=== PATIENT | female | born 1985 | race Caucasian/White ===

== ENCOUNTER 2016-09-01 09:08 | Emergency (ER) | payer OTHER ==
[2016-09-01] MEDS ORDERED: Aspirin Low Dose CHEW TAB* 81 MG PO ONE (09:14)
--- NOTE | 2016-09-01 09:36 | RAD ---
HISTORY: Chest pain, bronchitis COMPARISONS: None VIEWS:1: Single frontal portable view of the chest at 9:35 AM FINDINGS: LINES AND TUBES: None. CARDIOMEDIASTINAL SILHOUETTE: The cardiomediastinal silhouette is normal for portable technique. PLEURA: The costophrenic angles are sharp. No pleural abnormalities are noted. LUNG PARENCHYMA: The lungs are clear. ABDOMEN: The upper abdomen is clear. There is no subphrenic gas. BONES AND SOFT TISSUES: No bone or soft tissue abnormalities are noted. IMPRESSION: NO ACTIVE CARDIOPULMONARY DISEASE.
[2016-09-01 09:45] LABS: Hematocrit 35 % (35-47); Hemoglobin 12.1 g/dl (12.0-16.0); Mean Corpuscular HGB Conc 35 g/dl (31-36); Mean Corpuscular Hemoglobin 29 pg (27-31); Mean Corpuscular Volume 83 fL (80-97); Mean Platelet Volume 8 um3 (7.4-10.4); Red Blood Count 4.22 10^6/ul (4.0-5.4); Red Cell Distribution Width 12 % (10.5-15); White Blood Count 6.1 10^3/ul (3.5-10.8)
[2016-09-01 10:04] LABS: Albumin 3.7 g/dL (3.2-5.2); BUN/Creatinine Ratio 11.1 (8-20); Calcium 9.4 mg/dL (8.6-10.3); EGFR African American 143.7 (>60); EGFR Non-African American 111.7 (>60); Magnesium 1.9 mg/dL (1.9-2.7); Potassium 3.7 mmol/L (3.5-5.0); Total Bilirubin 0.3 mg/dL (0.2-1.0); Total Protein 8.7 g/dL (6.4-8.9)
[2016-09-01] MEDS ORDERED: Ketorolac INJ* 30 MG/ML 1 ML VIAL IV PUSH ONE (10:13)
[2016-09-01] MEDS ORDERED: Iohexol 350* (CONTRAST) 500 ML MDV IV ONE (10:17)
[2016-09-01 11:14] VITALS: BP 130/73
--- NOTE | 2016-09-01 11:22 | RAD ---
INDICATION: Pleuritic chest pain. Tachycardia. Oral contraceptive use. Assess for pulmonary embolus. COMPARISON: September 01, 2016 chest radiograph. TECHNIQUE: Multidetector CT images were obtained from the lung apices to the upper abdomen with 70 mL Omnipaque 350 IV contrast. Pulmonary angiogram protocol. Multiplanar reformation including with maximum intensity projection. REPORT: Respiratory motion artifact and minimal dependent subsegmental atelectasis. No alveolar consolidation concerning for pneumonia, focal pulmonary lesion, pleural effusion, pneumothorax. Upper normal 0.9 cm short axis bilateral axillary lymph nodes. Negative for lymphadenopathy based on short axis criteria. Upper normal heart size. Negative for pericardial effusion. Unremarkable thoracic aorta. No filling defects are identified from the main to the subsegmental pulmonary arteries to indicate presence of a pulmonary embolism. Images through the upper abdomen are remarkable for a 3 cm splenule at the splenic hilum without concern. 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 No suspicious focal osseous lesions evident. IMPRESSION: 1. Negative for pulmonary embolism. 2. Upper normal heart size. Negative for pericardial effusion.
[2016-09-01] MEDS ORDERED: methylPREDNISolone SOD SUCC* 125 MG 2 ML VIAL IV ONE (11:25)
--- NOTE | 2016-09-18 20:22 | ED ---
Gabe Martínez Adam, scribed for Ash Hilliard MD on 09/01/16 at 0950 . Respiratory - HPI Summary HPI Summary: 31 y/o female presents to the ED with c/o pleuritic pain. Chest pain has been on and off since yesterday but worsened significantly today registering at a 4 or 5 out of 10 in severity, localized near her heart. She was told by PCP 3 weeks ago that she possibly could have Bronchitis after reporting a productive cough with yellow sputum without hemoptysis at that time. Pt was given two does of ABx, as well as steroid Prednisone, and other medications Albuterol and Advair along with an inhaler. While productive cough has subsided since, Pt states current pleuritic pain is accompanied by diaphoresis. Pt denies any Hx of asthma, smoking, nor any SOB, myalgia, edema, fever, chill, or diarrhea, but does note she vomited one day ago after an especially fatty/sugary meal. Pt also took a trip by car from [place] to [place] two weeks ago. - History of Current Complaint Chief Complaint: EDChestPainROMI Stated Complaint: CHEST PAIN Time Seen by Provider: 09/01/16 09:17 Hx Obtained From: Patient Onset/Duration: Gradual Onset, Lasting Days, Still Present Timing: Constant Initial Severity: Moderate Current Severity: Moderate Pain Intensity: 4 Character: Cough (Productive) Sputum Amount: Moderate Sputum Color: Yellow Aggravating Factor(s): Deep Breaths Alleviating Factor(s): Steriods - Prednisone, Antibiotics, OTC Medications - Albuterol and Advair Associated Signs and Symptoms: Diaphoresis, Pleuritic Chest Pain - Allergy/Home Medications Allergies/Adverse Reactions: Allergies Allergy/AdvReac Type Severity Reaction Status Date / Time Cefaclor [From [facility]] Allergy Hives Verified 11/14/15 11:00 PMH/Surg Hx/FS Hx/Imm Hx Endocrine/Hematology History: Denies: Hx Diabetes Cardiovascular History: Denies: Hx Hypertension, Hx Pacemaker/ICD Respiratory History: Denies: Hx Asthma History: Denies: Hx Renal Disease Sensory History: Denies: Hx Hearing Aid Psychiatric History: Denies: Hx Panic Disorder - Surgical History Surgery Procedure, Year, and Place: THYROID REMOVED 2004-TONSILECTOMY 2002 Infectious Disease History: No Infectious Disease History: Denies: Traveled Outside the [place] in Last 30 Days - Family History Known Family History: Positive: Unknown - Social History Occupation: Employed Full-time Lives: With Family - Alcohol Use: None Hx Substance Use: No Substance Use Type: Reports: None Hx Tobacco Use: No Smoking Status (MU): Never Smoked Tobacco Review of Systems Positive: Skin Diaphoresis. Negative: Fever, Chills Negative: Erythema Negative: Sore Throat Positive: Chest Pain Positive: Cough. Negative: Shortness Of Breath Positive: Vomiting - One day ago after especially fatty/sugary meal. Negative: Abdominal Pain, Diarrhea, Nausea Negative: dysuria, hematuria Negative: Myalgia, Edema Negative: Rash Neurological: Other - Negavtive: Dizziness All Other Systems Reviewed And Are Negative: Yes Physical Exam - Summary Physical Exam Summary: Constitutional: Well-developed, Well-nourished, Alert. (-) Distressed Skin: Warm, Dry HENT: Normocephalic; Atraumatic Eyes: Conjunctiva normal Neck: Musculoskeletal ROM normal neck. (-) JVD, (-) Stridor, (-) Tracheal deviation Cardio: Chest tick present, rate normal, Heart sounds normal; Intact distal pulses; The pedal pulses are 2+ and symmetric. Radial pulses are 2+ and symmetric. (-) Murmur Pulmonary/Chest wall: Effort normal. (-) Respiratory distress, (-) Wheezes, (-) Rales, Costochondral tenderness Abd: Soft, (-) Tenderness, (-) Distension, (-) Guarding, (-) Rebound Musculoskeletal: (-) Edema Lymph: (-) Cervical adenopathy Neuro: Alert, Oriented x3 Psych: Mood and affect Normal Triage Information Reviewed: Yes Vital Signs On Initial Exam: Initial Vitals Temp Pulse Resp BP Pulse Ox 98.0 F 105 16 141/82 98 09/01/16 09:16 09/01/16 09:16 09/01/16 09:16 09/01/16 09:16 09/01/16 09:16 Vital Signs Reviewed: Yes - Tanvir Coma Scale Coma Scale Total: 15 Diagnostics - Vital Signs Vital Signs Temp Pulse Resp BP Pulse Ox 09/01/16 09:36 96 97 09/01/16 09:34 130/77 09/01/16 09:16 98.0 F 105 16 141/82 98 - Laboratory Result Diagrams: 09/01/16 09:30 09/01/16 09:30 Lab Statement: Any lab studies that have been ordered have been reviewed, and results considered in the medical decision making process. - Radiology CXR Radiology Interpretation Completed By: Radiologist - Impression: No active cardiopulmonary disease - CT CHEST/THORAX CTA CT Interpretation Completed By: Radiologist - IMPRESSION: 1. Negative for pulmonary embolism. 2. Upper normal heart size. Negative for pericardial effusion. - EKG 09:10 Cardiac Rate: NL - 89 BPM EKG Rhythm: Sinus Rhythm Ectopy: None EKG Interpretation: No STEMI - Additional Comments Diagnostic Additional Comments: Troponin I - 0.00 Re-Evaluation - Re-Evaluation First Eval Re-Evaluation Time: 11:28 - Discussed results. Disposition - Course Course Of Treatment: CT is negative. Consider viral bronchitis, asthma exacerbation, or pertussis. She has a pulmonary follow-up with Dr. Russell; she can schedule an appt with him in 2-3 days. She states that she saw Dr. Russell yesterday. Prescription will be given for Medrol Dosepak and Tessalon. - Diagnoses Provider Diagnoses: Cough, Pleurisy Discharge - Discharge Plan Condition: Stable Disposition: HOME Prescriptions: Benzonatate CAP* [Tessalon CAP*] 100 mg PO TID #30 cap methylPREDNISolone TAB* [Medrol TAB*] 4 - 8 mg PO .SEE LAZARO #1 lazaro Patient Education Materials: Acute Cough (ED), Pleurisy (ED) Referrals: Yaya Powell MD [Primary Care Provider] - Additional Instructions: Follow up with Dr. Russell (Pulmonology) as planned. The documentation as recorded by the Gabe mistry Adam accurately reflects the service I personally performed and the decisions made by , Ash Hilliard MD.
== END 2016-09-01 11:58 | disposition home or self-care (01) ==
LOC: ED 09:08
DX: R09.1 Pleurisy (principal); R05 Cough; R07.9 Chest pain, unspecified; R11.10 Vomiting, unspecified
CPT/HCPCS: 36415; 71010; 71275; 80053; 83735; 84484; 85025; 93005; 96374; 99284; J1885; Q9967

== ENCOUNTER 2016-09-07 21:02 | Emergency (ER) | payer OTHER ==
[2016-09-07] MEDS ORDERED: Ketorolac INJ* 60 MG/2 ML VIAL IM ONE (21:48)
[2016-09-07 22:10] LABS: Hematocrit 36 % (35-47); Mean Corpuscular HGB Conc 33 g/dl (31-36); Mean Corpuscular Hemoglobin 28 pg (27-31); Mean Corpuscular Volume 83 fL (80-97); Mean Platelet Volume 7 um3 (7.4-10.4); Red Blood Count 4.37 10^6/ul (4.0-5.4); Red Cell Distribution Width 12 % (10.5-15); White Blood Count 8.1 10^3/ul (3.5-10.8)
[2016-09-07 22:24] LABS: ALT 19 U/L (7-52); AST 24 U/L (13-39); Albumin 3.6 g/dL (3.2-5.2); Alkaline Phosphatase 70 U/L (34-104); Anion Gap 5 mmol/L (2-11); BUN/Creatinine Ratio 11.9 (8-20); Blood Urea Nitrogen 8 mg/dL (6-24); CO2 Carbon Dioxide 27 mmol/L (22-32); Calcium 9.1 mg/dL (8.6-10.3); Chloride 97 mmol/L (101-111); EGFR African American 133.8 (>60); EGFR Non-African American 104.1 (>60); Globulin 5.2 g/dL (2-4); Glucose 115 mg/dL (70-100); Potassium 3.6 mmol/L (3.5-5.0); Sodium 129 mmol/L (133-145); Total Protein 8.8 g/dL (6.4-8.9)
[2016-09-07] MEDS ORDERED: Acetaminophen TAB* 325 MG PO ONE (22:25)
[2016-09-07 22:31] LABS: Troponin I 0.04 ng/mL (<0.04)
--- NOTE | 2016-09-07 22:37 | RAD ---
Indication: Chest pain. 2 views of the chest including dual energy PA views demonstrate no mediastinal shift. Heart is of normal size and configuration. Lung portillo are clear. When compared to previous exam of September 01, 2016 no significant change is noted. IMPRESSION: No active cardiopulmonary disease is noted.
--- NOTE | 2016-09-08 01:14 | ED ---
veronika Martínez Timothy, scribed for Dany Rogel on 09/07/16 at 2137 . HPI Chest Pain - HPI Summary HPI Summary: Varsha Cheema is a 31 yo female presenting to [facility] with 8/10 mid chest pain since today. She also has SOB, dry cough, and COBB. Her pain is worse with coughs and deep breaths. Pt reports presenting to her PCP today, and was Dx with flu and started tamiflu. She states that she was here last week for a similar Sx. Pt denies any cardiac or respiratory MHx. - History of Current Complaint Chief Complaint: EDGeneral Time Seen by Provider: 09/07/16 21:29 Hx Obtained From: Patient Onset/Duration: Started Hours Ago, Still Present Time of Onset: 19:00 Timing: Constant Initial Severity: Moderate Current Severity: Moderate Pain Intensity: 8 Pain Scale Used: 0-10 Numeric Chest Pain Location: Mid Sternal Aggravating Factor(s): Deep Breaths Associated Signs and Symptoms: Positive: Chest Pain, Headaches, Shortness of Breath, Nonproductive Cough - Allergy/Home Medications Allergies/Adverse Reactions: Allergies Allergy/AdvReac Type Severity Reaction Status Date / Time Cefaclor [From [facility]] Allergy Hives Verified 09/07/16 21:15 PMH/Surg Hx/FS Hx/Imm Hx Endocrine/Hematology History: Denies: Hx Diabetes Cardiovascular History: Denies: Hx Hypertension, Hx Pacemaker/ICD History: Denies: Hx Renal Disease Sensory History: Denies: Hx Hearing Aid Psychiatric History: Denies: Hx Panic Disorder - Surgical History Surgery Procedure, Year, and Place: THYROID REMOVED 2004-TONSILECTOMY 2002 Infectious Disease History: No Infectious Disease History: Denies: Traveled Outside the [place] in Last 30 Days - Family History Known Family History: Positive: Cardiac Disease, Hypertension, Diabetes - Social History Alcohol Use: None Substance Use Type: Reports: None Smoking Status (MU): Unknown if Ever Smoked Review of Systems Constitutional: Negative Eyes: Negative ENT: Negative Positive: Chest Pain Positive: Shortness Of Breath, Cough Gastrointestinal: Negative Genitourinary: Negative Musculoskeletal: Negative Skin: Negative Positive: Headache Psychological: Normal All Other Systems Reviewed And Are Negative: Yes Physical Exam Triage Information Reviewed: Yes Vital Signs On Initial Exam: Initial Vitals Temp Pulse Resp BP Pulse Ox 98.8 F 124 16 108/68 98 09/07/16 21:04 09/07/16 21:04 09/07/16 21:04 09/07/16 21:04 09/07/16 21:04 Vital Signs Reviewed: Yes Appearance: Positive: Well-Appearing, No Pain Distress Skin: Positive: Warm, Skin Color Reflects Adequate Perfusion, Dry Head/Face: Positive: Normal Head/Face Inspection Eyes: Positive: EOMI, SHEEBA ENT: Positive: Normal ENT inspection, Hearing grossly normal. Negative: Muffled /hoarse voice Neck: Positive: Supple, Nontender Respiratory/Lung Sounds: Positive: Clear to Auscultation, Breath Sounds Present Cardiovascular: Positive: RRR, Pulses are Symmetrical in both Upper and Lower Extremities. Negative: Normal - midsternal chest tenderness Abdomen Description: Positive: Nontender, Soft Bowel Sounds: Positive: Present Musculoskeletal: Positive: Normal, Strength/ROM Intact Neurological: Positive: Normal, Sensory/Motor Intact, Alert, Oriented to Person Place, Time Psychiatric: Positive: Normal, Affect/Mood Appropriate Diagnostics - Vital Signs Vital Signs Temp Pulse Resp BP Pulse Ox 09/07/16 21:04 98.8 F 124 16 108/68 98 - Laboratory Result Diagrams: 09/07/16 22:00 09/07/16 22:00 Lab Statement: Any lab studies that have been ordered have been reviewed, and results considered in the medical decision making process. - Radiology CXR Xray Interpretation: No Acute Changes - IMPRESSION: No active cardiopulmonary disease is noted. Radiology Interpretation Completed By: Radiologist - EKG 2102 Cardiac Rate: Tachycardia - @ 131 BPM EKG Interpretation: Sinus tachycardia @ 131 BPM Re-Evaluation - Re-Evaluation First Eval Re-Evaluation Time: 01:03 Change: Improved Comment: Pt was informed of results of imaging and lab work, she is agreeable to be discharged. Chest Pain Course/Dx - Course Assessment/Plan: Varsha Cheema is a 31 yo female presenting to [facility] with 8/10 mid CP after taking tamiflu earlier today when she was Dx with flu by her PCP. After review of her negative CXR and tachycardic EKG, as well as her lab work, she will be discharged home. - Diagnoses Provider Diagnoses: Fever, Chest pain Discharge - Discharge Plan Condition: Stable Disposition: HOME Patient Education Materials: Chest Pain (ED), Fever in Adults (ED) Referrals: Yaya Powell MD [Primary Care Provider] - 2 Days Additional Instructions: Please follow up with your primary care physician regarding your visit to the emergency department today. Return to the emergency department with any new or recurring symptoms. The documentation as recorded by the veronika mistry Timothy accurately reflects the service I personally performed and the decisions made by , Dany Rogel.
[2016-09-08 01:25] VITALS: BP 99/57
== END 2016-09-08 01:25 | disposition home or self-care (01) ==
LOC: ED 21:02
DX: R50.9 Fever, unspecified (principal); R07.9 Chest pain, unspecified; R51 Headache; R06.02 Shortness of breath; R05 Cough
CPT/HCPCS: 36415; 71020; 80053; 83880; 84484; 84702; 85025; 93005; 96372; 99283; A9270-GY; J1885

== ENCOUNTER 2016-09-13 09:58 | Observation (INO) | payer OTHER ==
[2016-09-13] MEDS ORDERED: cefTRIAXone(*) 2 GM in NS 0.9% 50 ML* 50 ML IVPB ONE (11:23)
[2016-09-13] MEDS ORDERED: Vancomycin(*) 1,000 MG in NS 0.9% 250 ML* 250 ML IVPB ONE (11:23)
[2016-09-13 11:32] LABS: Hematocrit 30 % (35-47); Hemoglobin 10.3 g/dl (12.0-16.0); Mean Corpuscular HGB Conc 34 g/dl (31-36); Mean Corpuscular Hemoglobin 28 pg (27-31); Mean Corpuscular Volume 81 fL (80-97); Mean Platelet Volume 7 um3 (7.4-10.4); Red Blood Count 3.68 10^6/ul (4.0-5.4); Red Cell Distribution Width 12 % (10.5-15); White Blood Count 6.8 10^3/ul (3.5-10.8)
[2016-09-13] MEDS ORDERED: NS 0.9% 250 ML* 250 ML ONE (11:34)
[2016-09-13] MEDS ORDERED: Vancomycin(*) 1,000 MG BAG IVPB ONE (11:37)
[2016-09-13] MEDS ORDERED: cefTRIAXone(*) 2 GM ADDV.VIAL IVPB ONE (11:37)
[2016-09-13 11:44] LABS: Urine Bacteria Absent (Absent); Urine Bilirubin Negative (Negative); Urine Glucose Negative (Negative); Urine Nitrite Negative (Negative)
[2016-09-13 11:50] LABS: Albumin 3.2 g/dL (3.2-5.2); BUN/Creatinine Ratio 9.8 (8-20); Calcium 8.7 mg/dL (8.6-10.3); EGFR African American 183.4 (>60); EGFR Non-African American 142.6 (>60); Globulin 4.8 g/dL (2-4); Potassium 3.6 mmol/L (3.5-5.0); Total Bilirubin 0.4 mg/dL (0.2-1.0)
[2016-09-13] MEDS ORDERED: Acetaminophen TAB* 325 MG PO ONE (11:55)
--- NOTE | 2016-09-13 12:17 | RAD ---
INDICATION: Fever COMPARISON: September 07, 2016 TECHNIQUE: An AP portable view obtained at 1135 hours is submitted. FINDINGS: Bones/Soft Tissues: There are no acute bony findings. Cardiomediastinal: The cardiomediastinal silhouette is normal. Lungs: There are no infiltrates. Pleura: There are no pleural effusions. Other: None IMPRESSION: NEGATIVE EXAMINATION.
[2016-09-13] MEDS ORDERED: Metoclopramide IV* 5 MG/ML 2 ML VIAL IV ONE (12:38)
[2016-09-13] MEDS ORDERED: Ketorolac INJ* 30 MG/ML 1 ML VIAL IV PUSH ONE (13:15)
[2016-09-13 13:42] LABS: CSF Glucose 51 mg/dL (40-70)
[2016-09-13 13:54] LABS: BF RBC Count #1 0; BF RBC Count #2 0; BF WBC Count #1 4; BF WBC Count #2 8; Body Fluid Appearance Clear; Body Fluid WBC 6 /mcL; RBC counts within 6%? Yes; WBC counts within 15%? Yes
[2016-09-13 14:16] LABS: Body Fluid Total Cells Counted 100
[2016-09-13] MEDS ORDERED: Albuterol HFA INHALER* 8 gm MDI INH PRN (14:33)
[2016-09-13] MEDS ORDERED: Acetaminophen TAB* 325 MG PO PRN (14:34)
[2016-09-13] MEDS ORDERED: oxyCODONE/Acetamin 5/325 MG* TAB PO PRN (14:34)
[2016-09-13] MEDS ORDERED: Temazepam CAP* 15 MG PO PRN (14:34)
[2016-09-13] MEDS ORDERED: Morphine INJ* 2 MG/ML 1 ML CARPUJECT IV PRN (14:34)
[2016-09-13] MEDS ORDERED: NS 0.9% 1000 ML* 1,000 ML IV SCH (14:45)
[2016-09-13 14:59] LABS: Manual Entry Verification AS; Mono Internal Control QC Line Present; Mono Kit Lot# 6070004
[2016-09-13] MEDS: Ibuprofen TAB* 600 MG PO PRN (20:34)
--- NOTE | 2016-09-13 21:22 | CONS ---
CONSULTATION REPORT: DATE OF CONSULT: 09/13/16 REQUESTING PHYSICIAN: Dr. Hilliard. CONSULTING SERVICE: Infectious Disease. REASON FOR CONSULTATION: Fever and headache. IMPRESSION: 1. The patient has been ill for 4 to 5 weeks initially with fever, chill, myalgia, and cough. Flu antigen was negative at that time. Had a course of Tamiflu, has had pleuritic chest pain, multiple primary care and ER evaluations , which have been unrevealing except for elevated C-reactive protein and now at about 48 hours of severe migraine headaches, feels like her usual migraines, but would not go away. No neck stiffness. She has mild photophobia. I suspect underlying viral etiology, which would include influenza, parainfluenza, or active sore throat. 2. Niki-Yusuf acute infection, seen less likely or CMV that is also possible. She has had no travel or tick exposure here and her normal white count , platelets argue against non-Lyme tick-borne illness. She has not have other focal signs or symptoms. 3. Status post thyroidectomy. 4. Abnormal urinalysis. No urinary tract infection symptoms. RECOMMENDATIONS: She can a lumbar puncture with the routine studies to rule out a viral meningitis as a cause of her migraine type symptoms. She is having IV fluid hydration here, however, by labs she does not appear to be particularly dehydrated or prerenal. She has a mild anemia without elevated bilirubin. We will add a LDH and haptoglobin to rule out hemolysis, which is a complication of some viral and atypical bacterial infections. I can add EBV titers. Add CK to her blood testing. We will add urine culture. HISTORY OF PRESENT ILLNESS: This is a 31-year-old woman otherwise healthy seen in the ER with headache and fever. She provides a history, which was about 4 and half to 5 weeks ago, she developed fever, productive cough, chills, myalgia , had an influenza swab, which was negative, had an empiric course of Tamiflu for 5 days and did feel better after a day or two, as far as her fever and aches go. Fever became more low grade and aches resolved. However, then she developed pleuritic chest pain worse with a deep breath, leaning forward or back and so she was seen in the ER on the , had a course of doxycycline and steroid medications for probable bronchitis. Had a little bit of improvement with prescribed Levaquin, which she only took a dose or two of and stopped and was told by Dr. Powell it is probably viral. She had a CT of the chest on the that showed no pulmonary embolus and upper normal heart size without pericardial effusion. Chest x-ray on the showed no active cardiopulmonary disease. She has had occasional fever with chills and sweats, but no rigors. For the last 48 hours, she has had headache, which feels like her usual migraine headaches, except that they do not go away with the usual interventions and include mild photophobia. Denies neck stiffness or aura. She has tried her triptan medication at home without much success. Because of the chills, sweats, ongoing headaches, she was directed to the ER by Dr. Powell. She has seen by Dr. Hilliard, who is going to do a lumbar puncture. Blood tests have come back. She had an HCG on the , which was negative. PAST MEDICAL HISTORY: Status post total thyroidectomy, now on thyroid replacement. MEDICATIONS AT HOME: 1. Methylprednisolone. 2. Ibuprofen. 3. Benzonatate. ALLERGIES: CEFACLOR. FAMILY HISTORY: No tuberculosis or recurrent infections. SOCIAL HISTORY: She lives in [place] with her . They have a dog and a cat. No one else have been sick at home. She has had no travel. 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 No sick contacts at work. REVIEW OF SYSTEMS: All negative as noted above. PHYSICAL EXAMINATION: GENERAL: She is awake, not in distress. She is not diaphoretic. VITAL SIGNS: Temperature 38.3, heart rate 80, respiratory rate 20 , blood pressure 106/73, O2 sat 100% on room air. HEENT: There is no conjunctival hemorrhage. Oropharynx, no lesions. NECK: Neck is supple without nuchal rigidity. LUNGS: Clear to auscultation. HEART: Regular rate and rhythm without murmurs, rubs, or gallops. ABDOMEN: Soft, nontender, nondistended without hepatosplenomegaly. There is no flank tenderness to palpation. MUSCULOSKELETAL: No spine tenderness to palpation or joint synovitis. SKIN: There is no rash or splinter hemorrhages. LYMPH NODES: No palpable or visible lymphadenopathy. NEUROLOGIC: She is oriented x3, follows all commands. Moves all of her extremities. Cranial nerves II through XII are intact. DIAGNOSTIC STUDIES/LABORATORY DATA: White blood cell count 6.8, hemoglobin 10.3 , platelets 361, creatinine is 0.5, BUN is 5, troponin is 0, ALT is 14. Urinalysis shows 1+ white cells, squamous cells, and 2+ leukocyte esterase. Please see impressions and recommendations as outlined above, which I have discussed with Dr. Hilliard. Thank you for asking me to see Ms. Cheema in consultation. [id number]/[facility] #: [id number] [facility] CENTERVidya
--- NOTE | 2016-09-13 22:22 | HP ---
HISTORY AND PHYSICAL: DATE OF ADMISSION: 09/13/16 PRIMARY CARE PHYSICIAN: Dr. Powell. CHIEF COMPLAINT: Intermittent fevers and upper respiratory infection symptoms for 5 weeks. HISTORY OF PRESENT ILLNESS: Varsha Cheema is a 31-year-old female with a history of migraine headaches who had been having problems with intermittent fevers and upper respiratory infection symptoms for the past 5 weeks. Approximately 5 weeks ago, she started having nonproductive cough. She was diagnosed with bronchitis and placed on doxycycline. Afterwards, she was treated with azithromycin. She also in the past 4 weeks had been on 2 Medrol Dosepak and the last one finished on 09/01/11. She also was prescribed Levaquin at some point, but that medication she did not take. She was seen on 09/07/16 in the ED for chest pain. A CT angiogram of the chest documented on 09/01/16 showed negative pericardial effusion and negative for PE and upper normal heart size. The patient stated that her upper respiratory infection symptoms basically resolved, but she started developing more fevers. Approximately 6 days ago she had fever and rigors. She was seen in the ED at that point and that was noted to be on 09/07/16, and was placed on Tamiflu despite negative flu test. She continued the medication and finished the entire course as prescribed. It seemed that the fever somehow resolved, but today in the morning she had a fever of 100.9. She also noted her migraine headaches to be more severe. She used Zomig on a p.r.n. basis, but today in the morning the headache was so severe that the Zomig did not help. She also vomited once and she thought that was due to the migraine headache, but at the time of evaluation in the emergency room her headache is now much improved. The headache is described as frontal and bitemporal. She denies any problems with photophobia or neck pain. She also denied any problems with joint pain or edema. She had a couple of bouts of loose stools in the past couple of weeks, but that resolved and no abdominal pain was reported by the patient. Overall, she came into the hospital today with a temperature of 100.9 and worsening headache. There was a question of meningismus on the evaluation by the ED physician and a lumbar puncture was performed. That was not conclusive of meningitis. The patient was also seen in the emergency room by Dr. Conde from Infectious Diseases, who recommended evaluation for a possibility of hemolysis with haptoglobin and LDH as this patient's hemoglobin dropped from 12 to 10.3 over the past 2 weeks. The patient stated that she just started her period 6 days ago and that ended yesterday. Overall, the patient still feels weak and she is going to be admitted for dehydration and viral symptoms for observation. PAST MEDICAL HISTORY: 1. History of migraines. 2. History of thyroidectomy for the goiter. 3. History of status post tonsillectomy remotely. MEDICATION LIST: Include: 1. control pill Ocella 1 tablet daily. 2. Levothyroxine 150 mcg every other day alternating with 175 mcg every other day. 3. Albuterol inhaler 2 inhalations every 6 hours p.r.n. 4. Zomig 2.5 mg b.i.d. p.r.n. 5. Ibuprofen 600 mg every 8 hours p.r.n. ALLERGIES: CEFACLOR caused hives. Please note that the patient received ceftriaxone in the emergency department without any problems. FAMILY HISTORY: Positive for father with multiple myeloma and history of diabetes. SOCIAL HISTORY: The patient denies any tobacco, alcohol, or drug use. She is working in [employer]. She is . Her surrogate decision making person will be her mother. REVIEW OF SYSTEMS: Please see history of present illness. All the remaining 14 systems were reviewed with the patient and were otherwise negative. PHYSICAL EXAMINATION GENERAL: The patient is a very pleasant 31-year-old female who is in no acute distress, alert, awake, and oriented x3. VITAL SIGNS: Blood pressure of 114/69, heart rate of 86 and regular, respiratory rate 20, oxygen saturation 100% on room air, temperature 100.9. HEENT: Head is atraumatic, normocephalic. Eyes: Pupils equal, round, reactive to light and accommodation. Oropharynx clear. Mucosa moist. NECK: Supple. No JVD. No bruit bilaterally. RESPIRATORY: Clear to auscultation bilaterally. CARDIOVASCULAR: Regular rate and rhythm. No murmur. ABDOMEN: Soft, nontender. Bowel sounds present in all 4 quadrants. There is no CVA tenderness on evaluation. EXTREMITIES: There is no edema. Pulses +2 bilaterally. No clubbing or cyanosis. NEUROLOGIC: Cranial nerves II through XII grossly intact. Motor strength is 5/ 5 bilaterally. There is no neck stiffness on evaluation. SKIN: On evaluation of the skin, no ecchymotic areas or rashes noted. LABORATORY DATA AND STUDIES PERFORMED DURING THE HOSPITAL STAY: Included monospot was negative. White blood cell count of 6.8, hemoglobin of 10.3, hematocrit of 30, and platelets of 361. Sodium 131, potassium 4.6, chloride 99, carbon dioxide 23, BUN 9, creatinine 0.5. Liver function tests were unremarkable. Troponin of 0. Urinalysis showed low specific gravity with trace blood, trace ketones, +2 esterase and no bacteria. CSF fluid was colorless and clear with 6 white blood cells, 0 red blood cells, 48% neutrophils and 46% lymphocytes. Glucose was 51 and protein of 66. CSF Gram stain showed no organisms and +3 polys. Blood cultures are obtained on 09/11/16 that were both negative. Portable chest x-ray was read by the radiologist as "negative examination." ASSESSMENT AND PLAN: Varsha Cheema is a 31-year-old female with history of migraines who presents with symptoms of viral syndrome. The patient had been up to now on at least 2 antibiotics and she finished her last Medrol Dosepak on 09/01/16. At this point, she does have a low-grade fever, but her headache is improving and most likely migraine related. Her CSF is not conclusive of meningitis, although she does have mildly elevated total white blood cells at 6 with the cutoff being 5. At this point, the patient is going to be placed on overnight observation and rehydrated. Due to abnormal urinalysis, she is going to be continued to be treated with ceftriaxone for possible UTI. For DVT prophylaxis, the patient is ambulatory and low risk. In regards to the patient's anemia, I believe it is probably related to menstrual blood loss. The patient's decrease in hemoglobin coincides with her having her menstruation. At this point, haptoglobin and LDH levels are pending in terms of the patient. TIME SPENT: Approximately 62 minutes were spent on the admission of this patient, more than half that time was spent [id number] with the patient during the interview and physical exam. CC: Dr. Powell; Dr. Conde * [id number]/[facility] #: [id number] [facility]
[2016-09-14] MEDS: Ibuprofen TAB* 600 MG PO PRN ×2 (04:35→12:13)
[2016-09-14] MEDS ORDERED: Levothyroxine TAB* 100 MCG TAB PO SCH (06:00)
[2016-09-14] MEDS ORDERED: Levothyroxine TAB* 75 MCG TAB PO SCH (06:00)
[2016-09-14 06:45] LABS: Hematocrit 29 % (35-47); Hemoglobin 9.8 g/dl (12.0-16.0); Mean Corpuscular HGB Conc 33 g/dl (31-36); Mean Corpuscular Hemoglobin 28 pg (27-31); Mean Corpuscular Volume 83 fL (80-97); Mean Platelet Volume 7 um3 (7.4-10.4); Red Blood Count 3.56 10^6/ul (4.0-5.4); Red Cell Distribution Width 12 % (10.5-15); White Blood Count 6.3 10^3/ul (3.5-10.8)
[2016-09-14 07:01] LABS: BUN/Creatinine Ratio 12.5 (8-20); EGFR African American 196.6 (>60); EGFR Non-African American 152.9 (>60); Potassium 3.7 mmol/L (3.5-5.0)
--- NOTE | 2016-09-14 07:57 | ED ---
Gabe Martínez Adam, scribed for Ash Hilliard MD on 09/13/16 at 1104 . Complex/Multi-Sys Presentation - HPI Summary HPI Summary: 31 year old female arrived to [facility] complaining of continuous headache for the past three days, worsening yesterday. She has also been experiencing difficulty walking, N/V/D, fever (100.8), chills, general body aches, and productive cough with very thick sputum. She reports feeling "bothered by light", and her pain is exacerbated by movement. She denies any vaginal bleeding/discharge or stomach pains. She takes Zomig for her chronic migraines, but yesterday the Zomig did not have any effect. The patient has been experiencing a chronic cough, chest pain, and migraines for five weeks; initial rapid flu test came back negative. 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 Russell. She returned to [facility] on 09/07 c/o chest pain/SOB/Productive cough; she was treated for the flu and advised to follow up with her PCP. - History Of Current Complaint Chief Complaint: ED Hx Obtained From: Patient Onset/Duration: Gradual Onset, Lasting Weeks - five weeks, worsened yesterday Timing: Constant Severity Currently: Moderate Severity Initially: Moderate Associated Signs And Symptoms: Positive: Headache, Cough, Nausea, Vomiting, Diarrhea, Fever - 100.8 (taken in ED) - Allergies/Home Medications Allergies/Adverse Reactions: Allergies Allergy/AdvReac Type Severity Reaction Status Date / Time Cefaclor [From [facility]] Allergy Hives Verified 09/07/16 21:15 Home Medications: Home Medications Albuterol HFA INHALER* [Ventolin HFA Inhaler*] 2 puff INH Q6H PRN 09/13/16 [ History Confirmed 09/13/16] Drospirenone-Ethinyl Estradiol [Ocella 3-0.03 mg] 1 tab PO DAILY 09/13/16 [ History Confirmed 09/13/16] Levothyroxine TAB (NF) [Synthroid TAB (NF)] 175 mcg PO EVERY OTHER DAY 09/13/16 [History Confirmed 09/13/16] Levothyroxine TAB* [Synthroid TAB*] 150 mcg PO EVERY OTHER DAY 09/13/16 [ History Confirmed 09/13/16] Zolmitriptan [Zolmitriptan Odt] 2.5 mg PO BID PRN 09/13/16 [History Confirmed ] PMH/Surg Hx/FS Hx/Imm Hx Endocrine/Hematology History: Denies: Hx Diabetes, Autoimmune Disease Cardiovascular History: Denies: Hx Hypertension, Hx Pacemaker/ICD History: Denies: Hx Renal Disease Sensory History: Denies: Hx Hearing Aid Psychiatric History: Denies: Hx Panic Disorder - Surgical History Surgery Procedure, Year, and Place: THYROID REMOVED 2004-TONSILECTOMY 2002 Infectious Disease History: No Infectious Disease History: Denies: Traveled Outside the [place] in Last 30 Days - Family History Known Family History: Positive: Cardiac Disease, Hypertension, Diabetes - Social History Alcohol Use: None Substance Use Type: Reports: None Smoking Status (MU): Unknown if Ever Smoked Review of Systems Positive: Fever - 100.8, Chills Positive: Photophobia. Negative: Erythema Negative: Sore Throat Negative: Chest Pain Positive: Cough - productive cough, thick sputum . Negative: Shortness Of Breath Positive: Vomiting, Diarrhea, Nausea. Negative: Abdominal Pain Positive: other - no vaginal bleeding/discharge. Negative: dysuria, hematuria Positive: Myalgia - neck pain . Negative: Edema Negative: Rash Neurological: Other - difficulty walking Positive: Headache All Other Systems Reviewed And Are Negative: Yes Physical Exam - Summary Physical Exam Summary: Constitutional: Well-developed, Well-nourished, Alert. (-) Distressed Skin: Warm, Dry HENT: Normocephalic; Atraumatic Eyes: Conjunctiva normal. Photosensitivity. Neck: Musculoskeletal ROM normal neck. (-) JVD, (-) Stridor, (-) Tracheal deviation Cardio: Rhythm regular, rate normal, Heart sounds normal; Intact distal pulses; The pedal pulses are 2+ and symmetric. Radial pulses are 2+ and symmetric. (-) Murmur Pulmonary/Chest wall: Effort normal. (-) Respiratory distress, (-) Wheezes, (-) Rales Abd: Soft, (-) Tenderness, (-) Distension, (-) Guarding, (-) Rebound Musculoskeletal: (-) Edema. Meningismus. Lymph: (-) Cervical adenopathy Neuro: Alert, Oriented x3. Psych: Mood and affect Normal Triage Information Reviewed: Yes Vital Signs On Initial Exam: Initial Vitals Temp Pulse Resp BP Pulse Ox 99.3 F 96 20 121/73 98 09/13/16 10:07 09/13/16 10:07 09/13/16 10:07 09/13/16 10:07 09/13/16 10:07 Vital Signs Reviewed: Yes Procedures - Lumbar Puncture Procedural Sedation: No Position: Lateral Decubitus Aseptic Technique: Local Anesthesia, Lidocaine Anesthesia Used: 1.0% Lido Spinal Needle Used: 22 Gauge Lumbar Puncture Note: 3.5 inch spinal needle, L4-L5 interspace, tolerated well, clear fluid obtained 4 mLs Diagnostics - Vital Signs Vital Signs Temp Pulse Resp BP Pulse Ox 09/13/16 10:07 99.3 F 96 20 121/73 98 - Laboratory Result Diagrams: 09/13/16 11:20 09/13/16 11:20 Lab Statement: Any lab studies that have been ordered have been reviewed, and results considered in the medical decision making process. - Radiology CXR Radiology Interpretation Completed By: Radiologist - IMPRESSION: NEGATIVE EXAMINATION. - Additional Comments Diagnostic Additional Comments: Troponin I - 0.00 Monoscreen - Negative Complex Multi-Symp Course/Dx - Diagnoses Provider Diagnoses: UTI (urinary tract infection), Viral illness - Physician Notifications Discussed Care Of Patient With: 13:15 - discussed care of patient with PCP (Dr. Powell), shawnacommenmelani pt be admitted to the hospital for further care. Instructed by Provider To: Admit As Inpatient Discharge - Discharge Plan Condition: Stable Disposition: ADMITTED TO [facility] documentation as recorded by the Gabe mistry Adam accurately reflects the service I personally performed and the decisions made by me, Ash Hilliard MD.
[2016-09-14] MEDS ORDERED: Ketorolac INJ* 15 MG/ML 1 ML VIAL IV PUSH ONE (08:56)
[2016-09-14] MEDS ORDERED: Eth Estradiol/Drospirenone(NF) TAB PO SCH (09:00)
[2016-09-14 11:52] VITALS: BP 111/62
[2016-09-14] MEDS ORDERED: cefTRIAXone VIAL(*) 1,000 MG in NS 0.9% 50 ML* 50 ML IVPB SCH (12:00)
[2016-09-15] MEDS ORDERED: Levothyroxine TAB* 150 MCG TAB PO SCH (06:00)
--- NOTE | 2016-09-15 06:34 | DS ---
DISCHARGE SUMMARY: DATE OF ADMISSION: 09/13/16 DATE OF DISCHARGE: 09/14/16 PRIMARY CARE PROVIDER: Dr. Powell. DISCHARGE DIAGNOSIS: Mild septic meningitis with subsequent headache. SECONDARY DIAGNOSES: 1. History of recent viral syndrome. 2. History of migraines. 3. Status post thyroidectomy and post surgical hypothyroidism. 4. Remote tonsillectomy. MEDICATION AT DISCHARGE: 1. control pill 1 tablet daily. 2. Levothyroxine 150 mcg alternating with 175 mcg every other day. 3. Albuterol inhaler 2 inhalations every 6 hours p.r.n. 4. Zomig 2.5 mg b.i.d. p.r.n. headache. 5. Ibuprofen 600 mg every 8 hours p.r.n. 6. The patient is instructed to use Tylenol 500 mg every 6 hours for headache. 7. Oxycodone 5 mg every 4 hours for headache. The patient was given a prescription for 30 tablets of oxycodone total. I-STOP was checked to prescribing the medication. HOSPITALIZATION COURSE: Varsha Cheema is a 31-year-old female with history of migraine headaches and hypothyroidism who has had problems with upper respiratory infection symptoms for the past 3 or 4 weeks. She was on two courses of antibiotics and two courses of Solu-Medrol. At this time, she came into the ED for evaluation of worsening of her migraine headache. The patient was noted to be mildly anemic but she just had her period. She had mild photo- phobia and frontal headache that was worse than her usual migraine but location was consistent with prior migraines. She had no aura. She had a lumbar puncture obtained in the emergency department where 6 white blood cells were noted with 48% of neutrophils and 46 of lymphocytes, total protein was 66 and glucose of 51. There were no red blood cells for evaluation. She initially was febrile on evaluation but that resolved and did not recur throughout her hospital stay. She was seen by Dr. Conde from Infectious Disease. At this point most likely working diagnosis is viral syndrome with mild aseptic meningitis. The patient continued to have headache throughout her hospital stay but she also refused narcotic medications to control the headache. She was prescribed oxycodone on discharge and she agreed to trying to use it as needed. She was also advised to use ibuprofen and Tylenol on a p.r.n. basis. Neurologically, her exam was nonfocal and basically within normal limits. She did have abnormal urinalysis but urine cultures were negative at the time of discharge. From her serology studies her IgG was positive for CMV but IgM for CMV was negative. [place] screen was also negative. At discharge, the patient is recommended to follow up Dr. Powell in approximately 4 to 7 days, and Dr. Conde in approximately 1 to 2 weeks. Physical exam at discharge is unchanged from admission. CC: Dr. Powell; Dr. Conde* [id number]/[facility] #: [id number] [facility]
== END 2016-09-14 20:55 | disposition home or self-care (01) ==
LOC: ED 09:58 → MED 14:32
PROVIDERS: ADMIT Internal Medicine; ATTEND Internal Medicine
DX: G00.9 Bacterial meningitis, unspecified (principal); R51 Headache; E89.0 Postprocedural hypothyroidism; B27.00 Gammaherpesviral mononucleosis without complication
CPT/HCPCS: 36415; 71010; 80048; 80053; 81003; 81015; 82550; 82945; 83010; 83605; 83615; 84157; 84484; 85025; 85610; 85730; 86308; 87040; 87070; 87086; 87205; 89051; 96365; 96375; 96376; 99284; A9270-GY; G0378; J0696; J1885; J2765; J3370

== ENCOUNTER 2016-12-27 08:55 | Emergency (ER) | payer OTHER ==
[2016-12-27 09:02] VITALS: BP 136/75
--- NOTE | 2016-12-27 09:40 | RAD ---
Indication: Right foot injury. 3 views of the right foot are reviewed. There is no fracture or dislocation. No other bone or joint abnormality is noted. Fragmentation is noted in the proximal end of the first metacarpal. IMPRESSION: No definite fracture of the foot is noted.
--- NOTE | 2016-12-27 10:58 | UC ---
Chino Martínez Benjamin, scribed for Nancy Benítez DO on 12/27/16 at 0941 . Lower Extremity/Ankle HPI - HPI Summary HPI Summary: 31yo female c/o dropping an approximately 40lb box of wood dashawn on her right foot. Reports pain of 6/10 on the right foot. Pt reports throbbing, sharp pain that is worse with walking, touch, and with pressure. Hx of asthma and lupus. Fhx HTN and DM. - History of Current Complaint Chief Complaint: UCLowerExtremity Stated Complaint: FOOT INJURY Time Seen by Provider: 12/27/16 09:06 Hx Obtained From: Patient ?: No Onset/Duration: Sudden Onset, Lasting Days - 1 day, Still Present Severity Initially: Moderate Severity Currently: Moderate Pain Intensity: 6 Pain Scale Used: 0-10 Numeric Aggravating Factor(s): Standing, Ambulation, Nothing - touch Alleviating Factor(s): Elevation Able to Bear Weight: Yes - but with pain - Allergies/Home Medications Allergies/Adverse Reactions: Allergies Allergy/AdvReac Type Severity Reaction Status Date / Time Cefaclor [From Ceclor] Allergy Hives Verified 09/17/16 11:21 PMH/Surg Hx/FS Hx/Imm Hx Endocrine History: Thyroid Disease - Surgical History Surgical History: Yes Surgery Procedure, Year, and Place: THYROID REMOVED 2004-TONSILECTOMY 2002 - Family History Known Family History: Positive: Cardiac Disease, Hypertension, Diabetes - Social History Occupation: Employed Full-time Lives: With Family Alcohol Use: Occasionally Substance Use Type: None Smoking Status (MU): Never Smoked Tobacco - Immunization History Most Recent Influenza Vaccination: unknown Most Recent Tetanus Shot: unknown Most Recent Pneumonia Vaccination: never Review of Systems Constitutional: Negative Skin: Negative Eyes: Negative ENT: Negative Respiratory: Negative Cardiovascular: Negative Gastrointestinal: Negative Genitourinary: Negative Motor: Negative Neurovascular: Negative Musculoskeletal: Arthralgia - right foot Neurological: Negative Psychological: Negative All Other Systems Reviewed And Are Negative: Yes Physical Exam Triage Information Reviewed: Yes Appearance: Well-Appearing, No Pain Distress, Well-Nourished Vital Signs: Initial Vital Signs Temp 98.6 F 12/27/16 08:59 Pulse 103 12/27/16 08:59 Resp 18 12/27/16 08:59 BP 136/75 12/27/16 08:59 Pulse Ox 100 12/27/16 08:59 Vital Signs Reviewed: Yes Eyes: Positive: Conjunctiva Clear. Negative: Discharge ENT: Positive: Hearing grossly normal. Negative: Muffled/hoarse voice Neck exam: Normal Neck: Positive: Supple Respiratory: Positive: Lungs clear, Normal breath sounds, No respiratory distress, No accessory muscle use Cardiovascular: Positive: RRR, No Murmur Musculoskeletal: Positive: Other: - mild tenderness in mid foot, Metatarsals 1- 4 of the right foot. Neurological: Positive: Alert, Muscle Tone Normal Psychological: Positive: Age Appropriate Behavior Skin Exam: Normal Skin: Negative: rashes Diagnostics - Radiology RIGHT FOOT XR Xray Interpretation: No Acute Changes Radiology Interpretation Completed By: Radiologist Re-Evaluation - Re-Evaluation First Eval Re-Evaluation Time: 09:55 Comment: Discussed imaging results with the pt Lower Extremity Course/Dx - Course Course Of Treatment: Right FOOT XR: NAD. No Fx. - Differential Dx/Diagnosis Differential Diagnosis/HQI/PQRI: Contusion, Fracture (Closed), Sprain, Other - crush Provider Diagnoses: foot contusion, crush Discharge - Discharge Plan Condition: Stable Disposition: HOME Patient Education Materials: Foot Contusion (ED), Crush Injury (ED) Forms: *Work Release Referrals: Yaya Powell MD [Primary Care Provider] - If Needed (Follow up in 5-7 days for re-evaluation if not significantly improved.) The documentation as recorded by the Chino mistry Benjamin accurately reflects the service I personally performed and the decisions made by , Nancy Benítez DO.
== END 2016-12-27 10:25 | disposition home or self-care (01) ==
LOC: UCEAST 08:55
DX: S90.31XA Contusion of right foot, initial encounter (principal); S97.81XA Crushing injury of right foot, initial encounter; W20.8XXA Other cause of strike by thrown, projected or falling object, initial encounter; Y92.9 Unspecified place or not applicable; J45.909 Unspecified asthma, uncomplicated
CPT/HCPCS: 99213; G0463